=== PATIENT | male | born 1945 | race Caucasian/White ===

== ENCOUNTER → 2017-05-16 14:14 | Outpatient (CLI) | payer MEDICARE, OTHER, SELFPAY ==
--- NOTE | 2017-05-16 14:17 | US_ITS ---
STUDY: SUPERFICIAL ULTRASOUND - LEFT GROIN. REASON FOR EXAM: Male, 71 years old. Palpable abnormality. TECHNIQUE: A superficial ultrasound was performed with real-time and static johnson-scale imaging. COMPARISON: None. FINDINGS: The palpable abnormality corresponds to inhomogeneous area of increased echotexture suggestive of bowel in keeping with hernia. US/Ext Non Vasc Limited/Soft Tiss IMPRESSION: The palpable abnormality most likely corresponds to a hernia containing bowel. Electronically Signed: Gabriel Delcid MD at 9:44 EDT Tel [phone], Service support ,
== END ==
PROVIDERS: Family Provider Nurse Practitioner; PCP Nurse Practitioner; Visit Provider Nurse Practitioner Gerontology
DX: R19.09 Other intra-abdominal and pelvic swelling, mass and lump (principal)
CPT/HCPCS: 76882

== ENCOUNTER 2017-05-26 11:36 | Day surgery (SDC) | payer MEDICARE, OTHER, SELFPAY ==
[2017-05-26] VITALS (7 sets, daily range): BP systolic 129–145; BP diastolic 74–91; PULSE 58–67; RESP 16; TEMP 36.3–36.8; O2SAT 92–100; BMI 31.3
--- NOTE | 2017-05-26 11:50 | EKG12_ITS ---
Test Reason : PREOP Blood Pressure : / mmHG Vent. Rate : 057 BPM Atrial Rate : 057 BPM P-R Int : 186 ms QRS Dur : 092 ms QT Int : 438 ms P-R-T Axes : 040 -14 015 degrees QTc Int : 426 ms Sinus bradycardia Inferior infarct , age undetermined Abnormal ECG Confirmed by ELVA CASTAÑEDA, MAMADOU ([id number]), editor sound MIKE MADDEN ([id number]) on 05/30/2017 3:51:23 PM Referred By: Harman Ta Confirmed By:MAMADOU STEVENSON MD
--- NOTE | 2017-05-26 12:42 | PCM.DC.HER ---
Discharge Diet: Light diet - advance as tolerated Discharge Activity: Return to Normal Activity, May Drive - when you are no longer taking narcotic pain medications., May Shower - with the bandage in place 1-2 days after surgery. Lifting Restrictions: 20 pounds for 8 weeks. Additional Activity Instructions:: Climbing stairs is fine, walking is encouraged. Sitting in bed may be uncomfortable. Sitting up using your lateral muscles (sitting up sideways) is usually more comfortable. Do not drive, work heavy equipment of sign legal documents for 24 hours. If your hernia repair was an ingunial repair, you may have scrotal swelling, an ice pack and/or athletic support can provide more comfort. Pain medications may cause nausea, you should typically eat light foods as you take your pain medications. Pain medications may also cause constipation. If you have difficulty with this, discuss with your doctor. Call your doctor if your incision/area has: Continuous Slow Oozing, Sudden Increased Bleeding, Increased Pain/ Swelling, Increased Redness, Foul Smelling Discharge Call your doctor if you observe: Fever of 101 or Higher Suture Line Care: Avoid Pulling/Pushing, Avoid Pinching/Bending Additional Dressing/Incision Instructions:: Leave the operative bandage on for 2-3 days. When you remove the bandage, leave the steri-strips on place until your follow up appointment or they fall off. Allergies/Adverse Reactions: Allergies ciprofloxacin HCl [From Cipro] Adverse Reaction (Verified 05/22/17 15:09) Nausea/Vom/Diarrhea levofloxacin [From Levaquin] Adverse Reaction (Verified 05/22/17 15:09) Nausea/Vom/Diarrhea Medications to take at Discharge Aspirin [Aspirin, Baby] 81 mg PO DAILY@0800 12/03/13 Glucosamine/MSM/Chondroitin A [Glucosamine Chondroit MSM Tab] 1 ea PO BID 12/03/13 Hydrochlorothiazide [Hctz] 12.5 mg PO DAILY 12/03/13 Vitamin E 400 units PO DAILY 12/03/13 Fexofenedine 180 mg PO DAILY 12/19/13 mecobalamin (vitamin B12) 1,000 mcg disintegrating tablet,sublingual 1,000 mcg SUBLINGUAL QDAY 05/22/17 metoprolol tartrate 50 mg tablet 50 mg PO BID 05/22/17 tamsulosin 0.4 mg capsule 0.4 mg PO QDAY 05/22/17 Oxycodone HCl/Acetaminophen [Percocet 5/325] 1 - 2 tab PO Q4H PRN PRN 4 Days #30 tab 05/26/17 The following prescriptions were given: Oxycodone HCl/Acetaminophen [Percocet 5/325] 1 - 2 tab PO Q4H PRN PRN 4 Days #30 tab PRN Reason: Pain Primary Care Physician: Fiorella Krishna [Primary Care Provider] - Please Follow Up With: Harman Ta MD - [phone] When: Plan to have a follow up appointment in 7 days. Call to schedule.
--- NOTE | 2017-05-26 12:44 | OP.PCM_ITS ---
Problem List (1) Bilateral inguinal hernia without obstruction or gangrene Status: Acute Qualifiers: Recurrence: non-recurrent Qualified Code(s): K40.20 - Bilateral inguinal hernia, without obstruction or gangrene, not specified as recurrent Report of Operation Date of Procedure: 05/26/17 Pre-Operative Diagnosis: k40.20 bilateral inguinal hernias none recurrent Post-Operative Diagnosis: Same Surgery/Procedure Performed:: Laparoscopic bilateral inguinal hernia repair with mesh Type of Anesthesia:: General Anesthesiologist: Sid Olson Description of Procedure: Patient was brought in the operating room. Placed in the supine position. Under excellent general anesthetic. Local was injected supraumbilically and a curvilinear incision was made. Dissection was carried down to the fascia. Fascia was grasped with a Yaa. Varies needle was placed inside the abdomen. The abdomen was insufflated 15 torr. A 10/12 trocar was placed without difficulty. It was flanked by 2 #5 trochars placed under direct visualization. No injury to underlying structures. Patient was placed in the head down and rotated to the left. Patient was noted to have a direct inguinal hernia on the right. I scored the peritoneum and dissected down to Epi's ligament. Bringing back a direct inguinal hernia. I dissected further laterally dissecting the cord and vessel structures. I fashioned a medium 3 DMax mesh into the right side. I tacked the mesh to the pubic tubercle and Epi's ligament with a pro-tacker. I tacked it was sparing tacks superiorly and laterally. I reperitonealized the area with a pro-tacker. The mesh was covered completely. And I had excellent hemostasis. Indirect inguinal hernia on the left. I dissected down to the pubic tubercle and Epi's ligament area dissected further laterally The table was then turned to the right I scored the peritoneum on the left patient was noted to have a large dissecting the cord and vessel structures free. I fashioned a large 3 DMax mesh into the wound. I tacked it to Epi's ligament with a pro-tacker and tacked it superiorly and laterally with a pro- tacker with sparing tacks. The mesh laid completely flat and looked excellent and I had excellent hemostasis. I reperitonealized the area covering the mesh completely. Ilioinguinal nerve blocks were then performed bilaterally. I remove the trochars under direct visualization good hemostasis was noted. Fascia the umbilical port was closed with a [id number] stitch of 0 Vicryl. Skin incisions were closed with subcuticular stitches of 4-0 Monocryl. Steri- Strips were applied. Sterile dressings were applied. The patient tolerated the procedure well. - Admit VTE Documentation VTE Present on Admission: No VTE Mechan Device Prophylaxis: SCD's VTE Pharm Prophylaxis ordered?: No Reason prophylaxis not ordered:: Treatment Not Indicated
[2017-05-26 12:55] LABS: Anion Gap 5 (5-15); BUN 19 mg/dL (7-18); BUN/Creat Ratio 11.9 RATIO (10-20); Calcium,Total 8.6 mg/dL (8.5-10.1); Chloride 105 mmol/L (98-107); EST Glomerular Filtration Rate 46 mL/min (>60); Est Glom Filt Rate - Afr Amer 55 mL/min (>60); Estimated Creatinine Clearance 44.36 ml/min; Glucose 95 mg/dL (74-106); Sodium Level 140 mmol/L (136-145)
[2017-05-26] MEDS: Bupivacaine Mpf 0.5% 30 ML VIAL (13:26)
== END 2017-05-26 16:49 | disposition home or self-care (01) ==
LOC: SDC 11:37 → AC 11:38
PROVIDERS: Family Provider Nurse Practitioner; PCP Nurse Practitioner; Visit Provider Surgery
PROC: (CPT 49650; principal; 2017-05-26 13:45)
DX: K40.20 Bilateral inguinal hernia, without obstruction or gangrene, not specified as recurrent (principal); I12.9 Hypertensive chronic kidney disease with stage 1 through stage 4 chronic kidney disease, or unspecified chronic kidney disease; N18.3 Chronic kidney disease, stage 3 (moderate); E78.1 Pure hyperglyceridemia; D47.2 Monoclonal gammopathy; R16.1 Splenomegaly, not elsewhere classified; N40.0 Benign prostatic hyperplasia without lower urinary tract symptoms; G62.9 Polyneuropathy, unspecified; R00.1 Bradycardia, unspecified; M50.00 Cervical disc disorder with myelopathy, unspecified cervical region; F43.10 Post-traumatic stress disorder, unspecified; Z87.442 Personal history of urinary calculi; Z79.899 Other long term (current) drug therapy; Z79.82 Long term (current) use of aspirin; Z86.718 Personal history of other venous thrombosis and embolism; Z85.51 Personal history of malignant neoplasm of bladder
CPT/HCPCS: 00840; 49650; 80048; 93005; J7120; C1781; J2405

== ENCOUNTER → 2017-06-05 10:20 | Outpatient (CLI) | payer MEDICARE, OTHER, SELFPAY ==
[2017-06-05 10:32] LABS: Bacteria 0 SEEN /hpf (None Seen); Red Blood Cells-Urine 0 SEEN /hpf (0-5); Squamous Epithelial Cells - UA 0 SEEN /hpf (0-5)
[2017-06-05 11:40] LABS: Color, Urine Yellow (Yellow); Glucose, Dipstick Normal (Normal); Ketone-Dipstick Negative (Negative); Leukocyte Esterase-Dipstick 25 /ul (Negative); Nitrite-Dipstick Negative (Negative); Occult Blood-Urine Negative /ul (Negative); Protein-Dipstick Negative (Negative); Urine Bilirubin Dipstick Negative (Negative); Urine Clarity Clear (Clear); Urine Urobilinogen Normal (Normal)
[2017-06-05 11:51] LABS: Hyaline Cast 0-5 SEEN /lpf (0-5); Mucous, Urine 2+ /hpf (<or=2+); White Blood Cells 0-5 SEEN /hpf (0-5)
== END ==
PROVIDERS: Family Provider Nurse Practitioner; PCP Nurse Practitioner; Visit Provider Physician Assistant
DX: R30.0 Dysuria (principal)
CPT/HCPCS: 81001

== ENCOUNTER → 2017-10-31 16:33 | Outpatient (CLI) | payer MEDICARE, OTHER, SELFPAY ==
--- NOTE | 2017-10-31 16:37 | RAD_ITS ---
STUDY: X-RAY LEFT FOOT, FIRST TOE REASON FOR EXAM: Male, 71 years old. Left great toe pain TECHNIQUE: 3 view(s) of the toe were obtained. COMPARISON: None. FINDINGS: Normal visualized metatarsus. Normal metatarsophalangeal (M.T.P) joint. Normal interphalangeal joint. Normal phalanges and interphalangeal joint. There is no radiopaque foreign body. RAD/Toe(s) Min 2 Views IMPRESSION: Normal x-ray of the toe. Electronically Signed: Jayna Eng MD at 7:10 EDT , Service support ,
== END ==
PROVIDERS: Family Provider Nurse Practitioner; PCP Nurse Practitioner; Referring Provider Nurse Practitioner; Visit Provider Nurse Practitioner
DX: M79.675 Pain in left toe(s) (principal)
CPT/HCPCS: 73660

== ENCOUNTER → 2018-09-11 10:48 | Outpatient (CLI) | payer MEDICARE, OTHER, SELFPAY ==
--- NOTE | 2018-09-11 10:56 | RAD_ITS ---
STUDY: X-RAY - RIGHT FOOT CLINICAL: Male, 72 years old. 3 day history of right foot pain. TECHNIQUE: 3 view(s) of the foot. COMPARISON: None. FINDINGS: Normal talus, calcaneus, and tarsal bones. Normal visualized subtalar, talonavicular, calcaneocuboid, tarsal and tarsometatarsal articulations. Normal metatarsi. There is degenerative arthrosis of the metatarsophalangeal joint of the hallux . Normal tibial and fibular sesamoid bones. Normal interphalangeal joint of the great toe. Normal phalanges of the great toe. Normal second through fifth metatarsophalangeal joints. Normal interphalangeal joints and phalanges of the lesser toes. Soft tissue swelling. RAD/Foot min 3 Views IMPRESSION: Soft tissue swelling. Degenerative changes at the first metatarsophalangeal joint. Electronically Signed: Gabriel Delcid, at 12:13 EDT , Service support ,
== END ==
PROVIDERS: Family Provider Nurse Practitioner; PCP Nurse Practitioner; Referring Provider Nurse Practitioner; Visit Provider Nurse Practitioner
DX: M19.071 Primary osteoarthritis, right ankle and foot (principal); M79.89 Other specified soft tissue disorders
CPT/HCPCS: 73630

== ENCOUNTER → 2020-04-23 12:38 | Outpatient (CLI) | payer MEDICARE, OTHER, SELFPAY ==
[2020-04-21 09:08] VITALS: BMI 30.8
== END ==
PROVIDERS: PCP Nurse Practitioner; Referring Provider Surgery; Visit Provider Surgery
DX: M79.89 Other specified soft tissue disorders (principal); Z86.718 Personal history of other venous thrombosis and embolism
CPT/HCPCS: 93970

== ENCOUNTER → 2020-04-24 11:06 | Outpatient (CLI) | payer MEDICARE, OTHER, SELFPAY ==
[2020-04-21 09:08] VITALS: BMI 30.8
[2020-04-24 11:42] LABS: D-Dimer Quantitative (DVT/PE) 1.72 FEU/ug/m (0.27-0.49)
== END ==
PROVIDERS: PCP Nurse Practitioner; Referring Provider Internal Medicine Hematology & Oncology; Visit Provider Internal Medicine Hematology & Oncology
DX: D47.2 Monoclonal gammopathy (principal); I82.431 Acute embolism and thrombosis of right popliteal vein
CPT/HCPCS: 85379

== ENCOUNTER 2020-04-28 09:00 | Outpatient (RCR) | payer MEDICARE, OTHER, SELFPAY ==
[2020-04-21 09:08] VITALS: BP 151/93; PULSE 69; TEMP 37; BMI 30.8
--- NOTE | 2020-04-21 13:31 | HP.PCM_ITS ---
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 Code(s): I87.099 - Postthrombotic syndrome with other complications of unspecified lower extremity (4) History of bilateral inguinal hernia repair Status: Inactive Code(s): Z98.890 - Other specified postprocedural states; Z87.19 - Personal history of other diseases of the digestive system Comment: 05/26/2017 (5) S/P trigger finger release Status: Inactive Code(s): Z98.890 - Other specified postprocedural states Comment: Left hand (6) Hx of renal calculi Status: Inactive Code(s): Z87.442 - Personal history of urinary calculi (7) History of malignant neoplasm of bladder Status: Inactive Code(s): Z85.51 - Personal history of malignant neoplasm of bladder Comment: removal 12/2014 (8) Status post evacuation of subdural hematoma Status: Inactive Code(s): Z98.890 - Other specified postprocedural states; Z86.79 - Personal history of other diseases of the circulatory system (9) S/P tonsillectomy Status: Inactive Code(s): Z90.89 - Acquired absence of other organs (10) Hypertension Status: Chronic Code(s): I10 - Essential (primary) hypertension (11) Mild degeneration of cervical intervertebral disc Status: Chronic Code(s): M50.30 - Other cervical disc degeneration, unspecified cervical region (12) Personal history of subdural hematoma Status: Inactive Code(s): Z86.79 - Personal history of other diseases of the circulatory system (13) BPH (benign prostatic hyperplasia) Status: Chronic Code(s): N40.0 - Benign prostatic hyperplasia without lower urinary tract symptoms (14) Neuropathy Status: Chronic Code(s): G62.9 - Polyneuropathy, unspecified (15) Hypertriglyceridemia Status: Chronic Code(s): E78.1 - Pure hyperglyceridemia (16) CKD (chronic kidney disease) stage 3, GFR 30-59 ml/min Status: Chronic Code(s): N18.3 - Chronic kidney disease, stage 3 (moderate) (17) Elevated PSA Status: Chronic Code(s): R97.20 - Elevated prostate specific antigen [PSA] (18) Cervical radiculopathy Status: Chronic Code(s): M54.12 - Radiculopathy, cervical region (19) Personal history of DVT (deep vein thrombosis) Status: Chronic Code(s): Z86.718 - Personal history of other venous thrombosis and embolism History of Present Illness Date of Service: 04/21/20 Chief Complaint: Chronic swelling and edema of the right lower extremity History of Wound: This is a 74-year-old male who presented with chronic swelling and edema in his right lower extremity. He denies pain in the right lower extremity. Swelling and edema is worse at baseline. Patient sleeps in a recumbent position at night. He is active, and plays golf regularly. Historically, the patient has had 2 episodes of deep vein thrombosis in the right lower extremity. The first episode occurred in 1998, and the second in 2010. Both episodes occurred after driving on vacation to [place]. Following the first episode, the patient was placed on warfarin for approximately 6 months. Following the second episode, the patient was placed on warfarin, and took the medications for approximately 2 years which resulted in a subdural hematoma. The patient's subdural hematoma required surgical evacuation. The patient has been off of systemic anticoagulation therapy since that time. Local interactive developer, Dr. Tomy Hunter, has been involved in the patient's management. The patient currently takes an aspirin tablet daily. According to the patient, Dr. Hunter performed a thrombophilia evaluation in the past, though the results are not known. The patient has in his possession compression stockings, that were obtained in a department store, and likely of sufficient clinical compression. Past Medical History Past Medical History: Chronic Problems (Last Reviewed 06/05/17 @ 09:40 by Pinky Vela) Swelling of right lower extremity (Chronic) Edema of right lower leg (Chronic) Postphlebetic syndrome with other complication (Chronic) Hypertension (Chronic) Mild degeneration of cervical intervertebral disc (Chronic) BPH (benign prostatic hyperplasia) (Chronic) Neuropathy (Chronic) Hypertriglyceridemia (Chronic) CKD (chronic kidney disease) stage 3, GFR 30-59 ml/min (Chronic) Elevated PSA (Chronic) Cervical radiculopathy (Chronic) Personal history of DVT (deep vein thrombosis) (Chronic) Past Medical History: Patient's history is negative for myocardial infarction, congestive heart failure, diabetes mellitus, cerebrovascular accident, pulmonary disease, thyroid disease, peripheral arterial occlusive disease, and gastroesophageal reflux disease. Patient suffers from hypertension. He has a history of bladder cancer. He suffers from renal insufficiency, stage III. He also has a history of hyperlipidemia gout, obesity, cervical radiculopathy, peripheral neuropathy, and benign prostatic hypertrophy. Surgical History: - - The patient underwent evacuation of the subdural hematoma in 2012. He has had bilateral inguinal hernia repair. He had Dupuytren's contracture surgery on his left hand. He has had renal stones extracted. Allergies/Adverse Reactions: Allergies ciprofloxacin HCl [From Cipro] Adverse Reaction (Verified 06/05/17 09:40) Nausea/Vom/Diarrhea levofloxacin [From Levaquin] Adverse Reaction (Verified 06/05/17 09:40) Nausea/Vom/Diarrhea Home Medications: Ambulatory Orders Medication Instructions Recorded Aspirin [Aspirin, Baby] 81 mg PO DAILY@0800 12/03/13 Glucosamine/MSM/Chondroitin A 1 ea PO BID 12/03/13 [Glucosamine Chondroit MSM Tab] Hydrochlorothiazide [Hctz] 12.5 mg PO DAILY 12/03/13 Vitamin E 400 units PO DAILY 12/03/13 Fexofenedine 180 mg PO DAILY 12/19/13 mecobalamin (vitamin B12) 1,000 1,000 mcg SUBLINGUAL QDAY 05/22/17 mcg disintegrating tablet,sublingual metoprolol tartrate 50 mg tablet 50 mg PO BID 05/22/17 tamsulosin 0.4 mg capsule 0.4 mg PO QDAY 05/22/17 - Family History Paternal Family History: Family History (Last Reviewed 06/05/17 @ 09:40 by Pinky Vela) Father Hypertension Hx of blood clots Mother Hypertension Hx of blood clots Social History: 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 Lives: Spouse/ Significant Other Smoking Status: Never smoker Tobacco Use: Non-smoker Alcohol: None Drugs: None Review of Systems Constitutional: Denies: Chills, Fever, Weight Change Eyes: Denies: Pain, Vision Change HEENT: Denies: Difficulty Hearing, Difficulty Swallowing, Sinus Congestion Cardiovascular: Denies: Chest Pain, Palpitations Respiratory: Denies: Cough, Shortness of Breath Gastrointestinal: Denies: Diarrhea, Nausea, Vomiting Genitourinary: Denies: Dysuria, Hematuria Endocrine: Denies: Heat/ Cold Intolerance, Polydipsia, Polyuria Hematologic/ Lymphatic: Denies: Easy Bruising, Easy Bleeding - Physical Exam Vital Signs Temp Pulse BP 98.6 F 69 151/93 H 04/21/20 09:08 04/21/20 09:08 04/21/20 09:08 General: Alert, Oriented x3, Cooperative, No apparent distress, Well developed, Well nourished HEENT: Atraumatic, PERRLA, EOMI, Normocephalic Oral: Moist Mucosa Neck: No JVD Lungs: Normal air movement Abdomen: Non-Distended Extremities: No clubbing, No cyanosis, No Calf Tenderness, - - Mild swelling and edema are noted in the patient's right lower extremity. Coronal sleep ectatic is noted near the right medial malleolus. There are no open wounds or ulcerations. The peripheral extremities are warm and well perfused. Wound Measurements and Assessment WC - Nurse 1 - General Ulcer Measurement Start: 04/21/20 09:08 Freq: Status: Active Protocol: Activity Type Activity Date Activity User E-Sign Co-Sign Detail Recorded Client Recorded Date Recorded By Document 04/21/20 09:08 KR [id number] 04/21/20 09:28 KR 04/21/20 09:08 Wound Center Nurse 1 [Edema Assessment] -Right Calf (cm) 42.5 -Right Ankle (cm) 27 -Left Calf (cm) 42.5 -Left Ankle (cm) 24.6 WC - Nurse 3 - General Ulcer D/C NN Start: 04/21/20 09:08 Freq: Status: Active Protocol: Activity Type Activity Date Activity User E-Sign Co-Sign Detail Recorded Client Recorded Date Recorded By Document 04/21/20 10:03 KR [id number] 04/21/20 10:03 KR 04/21/20 10:03 Wound Care Nurse 3 [Compression Applied] Left -Compression Wrap Surepress ($) Musculoskeletal: No Muscle Wasting Neurological: Cranial nerves II-XII grossly intact, Neuro grossly intact Psych/Mental Status: Normal Affect, Appropriate, Alert and oriented to time, place, person, mood and affect Debridement Note Post-Debridement Measurements/Treatment WC - Nurse 3 - General Ulcer D/C NN Start: 04/21/20 09:08 Freq: Status: Active Protocol: Activity Type Activity Date Activity User E-Sign Co-Sign Detail Recorded Client Recorded Date Recorded By Document 04/21/20 10:03 FAUSTINA [id number] 04/21/20 10:03 FAUSTINA 04/21/20 10:03 Wound Care Nurse 3 Left -Compression Wrap Surepress ($) No debridement was completed today - There are no open wounds or ulcerations. Assessment/Plan Active Problems (Last Reviewed 06/05/17 @ 09:40 by Pinky Vela) Swelling of right lower extremity (Chronic) Edema of right lower leg (Chronic) Postphlebetic syndrome with other complication (Chronic) Hypertension (Chronic) Mild degeneration of cervical intervertebral disc (Chronic) BPH (benign prostatic hyperplasia) (Chronic) Neuropathy (Chronic) Hypertriglyceridemia (Chronic) CKD (chronic kidney disease) stage 3, GFR 30-59 ml/min (Chronic) Elevated PSA (Chronic) Cervical radiculopathy (Chronic) Personal history of DVT (deep vein thrombosis) (Chronic) Assessment: This is a 74-year-old generally active male who presents with swelling and edema in his right lower extremity. He has had 2 prior episodes of deep vein thrombosis in his right lower extremity. Both episodes were treated with systemic anticoagulation therapy. Two years following his second episode of deep vein thrombosis, while on warfarin, the patient suffered a subdural hematoma, which required surgical evacuation. Since that time, he has not been systemically anticoagulated. He is active. He sleeps in a recumbent position at night. It is likely that his right lower extremity swelling and edema are the result of postphlebitic effects. Plan: The patient, and his at the bedside, have been instructed in the appropriate conservative treatment measures relative to his right lower extremity swelling and edema. The patient has been advised to continue sleeping in a recumbent position. He has been advised to elevate his lower extremities, even during daytime hours. Elevation is to be to heart level, or higher. This is to be implemented as much as possible. Prolonged idle sitting has been discouraged. Activity has been encouraged. Weight optimization has been recommended. We are to obtain a venous duplex examination of the lower extremities, which is scheduled 2 days hence. We are to implement compression to the right lower extremity by means of SurePress wraps, which will be applied by the patient on a daily basis. Both the patient and his have been instructed in the appropriate means of application. Patient is to return in 1 week for reassessment. Influenza vaccine was not administered today. The patient is not a smoker. Patient weighs 215 pounds. He stands 5 feet 10 inches tall. His BMI is 30.8. Total time 29 minutes.
[2020-04-28 08:45] VITALS: BP 147/77; PULSE 71; TEMP 35.9; BMI 30.8
--- NOTE | 2020-04-28 09:31 | HP.PCM_ITS ---
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 Code(s): I87.099 - Postthrombotic syndrome with other complications of unspecified lower extremity (4) History of bilateral inguinal hernia repair Status: Inactive Code(s): Z98.890 - Other specified postprocedural states; Z87.19 - Personal history of other diseases of the digestive system Comment: 05/26/2017 (5) S/P trigger finger release Status: Inactive Code(s): Z98.890 - Other specified postprocedural states Comment: Left hand (6) Hx of renal calculi Status: Inactive Code(s): Z87.442 - Personal history of urinary calculi (7) History of malignant neoplasm of bladder Status: Inactive Code(s): Z85.51 - Personal history of malignant neoplasm of bladder Comment: removal 12/2014 (8) Status post evacuation of subdural hematoma Status: Inactive Code(s): Z98.890 - Other specified postprocedural states; Z86.79 - Personal history of other diseases of the circulatory system (9) S/P tonsillectomy Status: Inactive Code(s): Z90.89 - Acquired absence of other organs (10) Hypertension Status: Chronic Code(s): I10 - Essential (primary) hypertension (11) Mild degeneration of cervical intervertebral disc Status: Chronic Code(s): M50.30 - Other cervical disc degeneration, unspecified cervical region (12) Personal history of subdural hematoma Status: Inactive Code(s): Z86.79 - Personal history of other diseases of the circulatory system (13) BPH (benign prostatic hyperplasia) Status: Chronic Code(s): N40.0 - Benign prostatic hyperplasia without lower urinary tract symptoms (14) Neuropathy Status: Chronic Code(s): G62.9 - Polyneuropathy, unspecified (15) Hypertriglyceridemia Status: Chronic Code(s): E78.1 - Pure hyperglyceridemia (16) CKD (chronic kidney disease) stage 3, GFR 30-59 ml/min Status: Chronic Code(s): N18.3 - Chronic kidney disease, stage 3 (moderate) (17) Elevated PSA Status: Chronic Code(s): R97.20 - Elevated prostate specific antigen [PSA] (18) Cervical radiculopathy Status: Chronic Code(s): M54.12 - Radiculopathy, cervical region (19) Personal history of DVT (deep vein thrombosis) Status: Chronic Code(s): Z86.718 - Personal history of other venous thrombosis and embolism History of Present Illness Date of Service: 04/28/20 Chief Complaint: Chronic swelling and edema of the right lower extremity History of Wound: This is a 74-year-old male who presented with chronic swelling and edema in his right lower extremity. He denies pain in the right lower extremity. Swelling and edema is worse at baseline. Patient sleeps in a recumbent position at night. He is active, and plays golf regularly. Historically, the patient has had 2 episodes of deep vein thrombosis in the right lower extremity. The first episode occurred in 1998, and the second in 2010. Both episodes occurred after driving on vacation to [place]. Following the first episode, the patient was placed on warfarin for approximately 6 months. Following the second episode, the patient was placed on warfarin, and took the medications for approximately 2 years which resulted in a subdural hematoma. The patient's subdural hematoma required surgical evacuation. The patient has been off of systemic anticoagulation therapy since that time. Local nuclear waste process operator, Dr. Tomy Hunter, has been involved in the patient's management. The patient currently takes an aspirin tablet daily. According to the patient, Dr. Hunter performed a thrombophilia evaluation in the past, though the results are not known. The patient has in his possession compression stockings, that were obtained in a department store, and likely of sufficient clinical compression. Past Medical History Past Medical History: Chronic Problems (Last Reviewed 06/05/17 @ 09:40 by Pinky Vela) Swelling of right lower extremity (Chronic) Edema of right lower leg (Chronic) Postphlebetic syndrome with other complication (Chronic) Hypertension (Chronic) Mild degeneration of cervical intervertebral disc (Chronic) BPH (benign prostatic hyperplasia) (Chronic) Neuropathy (Chronic) Hypertriglyceridemia (Chronic) CKD (chronic kidney disease) stage 3, GFR 30-59 ml/min (Chronic) Elevated PSA (Chronic) Cervical radiculopathy (Chronic) Personal history of DVT (deep vein thrombosis) (Chronic) Surgical History: - - The patient underwent evacuation of the subdural hematoma in 2012. He has had bilateral inguinal hernia repair. He had Dupuytren's contracture surgery on his left hand. He has had renal stones extracted. Allergies/Adverse Reactions: Allergies ciprofloxacin HCl [From Cipro] Adverse Reaction (Verified 06/05/17 09:40) Nausea/Vom/Diarrhea levofloxacin [From Levaquin] Adverse Reaction (Verified 06/05/17 09:40) Nausea/Vom/Diarrhea Home Medications: Ambulatory Orders Medication Instructions Recorded Aspirin [Aspirin, Baby] 81 mg PO DAILY@0800 12/03/13 Glucosamine/MSM/Chondroitin A 1 ea PO BID 12/03/13 [Glucosamine Chondroit MSM Tab] Hydrochlorothiazide [Hctz] 12.5 mg PO DAILY 12/03/13 Vitamin E 400 units PO DAILY 12/03/13 Fexofenedine 180 mg PO DAILY 12/19/13 mecobalamin (vitamin B12) 1,000 1,000 mcg SUBLINGUAL QDAY 05/22/17 mcg disintegrating tablet,sublingual metoprolol tartrate 50 mg tablet 50 mg PO BID 05/22/17 tamsulosin 0.4 mg capsule 0.4 mg PO QDAY 05/22/17 - Family History Paternal Family History: Family History (Last Reviewed 06/05/17 @ 09:40 by Pinky Vela) Father Hypertension Hx of blood clots Mother Hypertension Hx of blood clots Lives: Spouse/ Significant Other Smoking Status: Never smoker Tobacco Use: Non-smoker Alcohol: None Drugs: None Review of Systems Constitutional: Denies: Chills, Fever, Weight Change Eyes: Denies: Pain, Vision Change HEENT: Denies: Difficulty Hearing, Difficulty Swallowing, Sinus Congestion Cardiovascular: Denies: Chest Pain, Palpitations Respiratory: Denies: Cough, Shortness of Breath Gastrointestinal: Denies: Diarrhea, Nausea, Vomiting Genitourinary: Denies: Dysuria, Hematuria Endocrine: Denies: Heat/ Cold Intolerance, Polydipsia, Polyuria Hematologic/ Lymphatic: Denies: Easy Bruising, Easy Bleeding - Physical Exam Vital Signs Temp Pulse BP 96.7 F L 71 147/77 H 04/28/20 08:45 04/28/20 08:45 04/28/20 08:45 General: Alert, Oriented x3, Cooperative, No apparent distress, Well developed, Well nourished HEENT: Atraumatic, PERRLA, EOMI, Normocephalic Oral: Moist Mucosa Neck: No JVD Lungs: Normal air movement Abdomen: Non-Distended Extremities: No clubbing, No cyanosis, No edema, No Calf Tenderness, - - There is no noted swelling or edema in the patient's right lower extremity. It is significantly improved. There are no skin changes, open wounds, or other visible abnormalities of the right lower extremity. Skin: No rashes Wound Measurements and Assessment WC - Nurse 1 - General Ulcer Measurement Start: 04/21/20 09:08 Freq: Status: Active Protocol: Activity Type Activity Date Activity User E-Sign Co-Sign Detail Recorded Client Recorded Date Recorded By Document 04/28/20 08:45 KR [id number] 04/28/20 08:50 KR 04/28/20 08:45 Wound Center Nurse 1 [Edema Assessment] -Right Calf (cm) 42 -Right Ankle (cm) 27 -Left Calf (cm) 41 -Left Ankle (cm) 25 WC - Nurse 3 - General Ulcer D/C NN Start: 04/21/20 09:08 Freq: Status: Active Protocol: Activity Type Activity Date Activity User E-Sign Co-Sign Detail Recorded Client Recorded Date Recorded By Document 04/28/20 09:28 KR [id number] 04/28/20 09:28 KR 04/28/20 09:28 Wound Care Nurse 3 [Compression Applied] Left -Compression Wrap Surepress ($) Pain Scale: 0-10 Numeric [Pain] -Is Patient Pain Free? Yes - Visit Discharge [Visit Discharge Information] -Discharge Condition Stable -Ambulatory Status Ambulatory -Transportation Private Auto -Accompanied by Musculoskeletal: No Muscle Wasting Neurological: Cranial nerves II-XII grossly intact, Neuro grossly intact Psych/Mental Status: Normal Affect, Appropriate, Alert and oriented to time, place, person, mood and affect Debridement Note Post-Debridement Measurements/Treatment - Nurse 3 - General Ulcer D/C NN Start: 04/21/20 09:08 Freq: Status: Active Protocol: Activity Type Activity Date Activity User E-Sign Co-Sign Detail Recorded Client Recorded Date Recorded By Document 04/21/20 10:03 KR [id number] 04/21/20 10:03 KR Document 04/28/20 09:28 KR [id number] 04/28/20 09:28 KR 04/21/20 04/28/20 10:03 09:28 Wound Care Nurse 3 Left -Compression Wrap Surepress ($) Surepress ($) Pain Scale: 0-10 Numeric Is Patient Pain Free? Yes WC - Visit Discharge Discharge Condition Stable Ambulatory Status Ambulatory Transportation Private Auto Accompanied by No debridement was completed today - There are no open wounds or ulcerations Assessment/Plan Active Problems (Last Reviewed 06/05/17 @ 09:40 by Pinky Vela) Swelling of right lower extremity (Chronic) Edema of right lower leg (Chronic) Postphlebetic syndrome with other complication (Chronic) Hypertension (Chronic) Mild degeneration of cervical intervertebral disc (Chronic) BPH (benign prostatic hyperplasia) (Chronic) Neuropathy (Chronic) Hypertriglyceridemia (Chronic) CKD (chronic kidney disease) stage 3, GFR 30-59 ml/min (Chronic) Elevated PSA (Chronic) Cervical radiculopathy (Chronic) Personal history of DVT (deep vein thrombosis) (Chronic) Assessment: This is a 74-year-old generally active male who presented with swelling and edema in his right lower extremity. He has had 2 prior episodes of deep vein thrombosis in his right lower extremity. Both episodes were treated with systemic anticoagulation therapy. Two years following his second episode of deep vein thrombosis, while on warfarin, the patient suffered a subdural hematoma, which required surgical evacuation. Since that time, he has not been systemically anticoagulated. He is active. He sleeps in a recumbent position at night. It is likely that his right lower extremity swelling and edema are the result of postphlebitic effects. Following the patient's initial visit 1 week ago, the patient underwent a venous duplex examination on April 23, 2020. He was found to have acute deep vein thrombosis in a short segment of the right popliteal vein. Patient was immediately informed of the finding. The patient's established nuclear waste process operator, Dr. Tomy Hunter, was contacted, and the management options relative to the patient's right lower extremity deep vein thrombosis were discussed in detail. The patient's remote past history of subdural hematoma while treated with systemic anticoagulation in the past was acknowledged. Additionally, the patient's two prior episodes of right lower extremity deep vein thrombosis were also considered. Decision was made to proceed with systemic anticoagulation therapy. It was felt that the use of Lovenox would be most appropriate, due to its short half-life. The patient was seen by Dr. Hunter without significant delay, and was started on Lovenox 90 mg subcutaneously every [address] Hunter's note has been reviewed. It is anticipated that systemic anticoagulation will likely continue for 3 months, with dose reduction considered in several weeks. Plan: The patient, and his at the bedside, have again been instructed in the appropriate conservative treatment measures relative to his right lower extremity swelling and edema. The patient has been advised to continue sleeping in a recumbent position. He has been advised to elevate his lower extremities, even during daytime hours. Elevation is to be to heart level, or higher. This is to be implemented as much as possible. Prolonged idle sitting has been discouraged. Activity has been encouraged. Weight optimization has been recommended. The patient is to continue wrapping his right lower extremity with SurePress on a daily basis. A prescription for graduated compression stockings of 20 to 30 mmHg compression has been provided by Dr. Hunter, and the stockings h ave been ordered from a local medical supply store. It is anticipated that the patient will obtain the stockings within the next several days, and begin wearing them daily. As documented above, the patient is now receiving systemic anticoagulation therapy, as prescribed by Dr. Hunter, nuclear waste process operator. Patient is scheduled to follow-up with Dr. Hunter in the next several weeks. The swelling in the patient's right lower extremity appears to have subsided, and there is currently no significant swelling or edema noted. Given the patient's history and his recent right lower extremity deep vein thrombosis, the patient is likely to continue having symptoms and manifestations of postphlebitic syndrome. He has been advised to continue with conservative treatment measures long-term, which include leg elevation, avoidance of idle standing and sitting, active lifestyle, weight management, and the use of graduated compression stockings. He is to be discharged from our facility, with instructions to follow-up with Dr. Hunter regarding systemic anticoagulation therapy and management of his current episode of right lower extremity deep vein thrombosis. Influenza vaccine was not administered today. The patient is not a smoker. Patient weighs 215 pounds. He stands 5 feet 10 inches tall. His BMI is 30.8. Total time: 27 minutes.
== END 2020-04-28 09:47 | disposition home or self-care (01) ==
LOC: WC 09:00
PROVIDERS: PCP Nurse Practitioner; Visit Provider Surgery
DX: R60.0 Localized edema (principal); M79.89 Other specified soft tissue disorders; I87.0 Postthrombotic syndrome; M50.10 Cervical disc disorder with radiculopathy, unspecified cervical region; N40.0 Benign prostatic hyperplasia without lower urinary tract symptoms; G62.9 Polyneuropathy, unspecified; N18.30 Chronic kidney disease, stage 3 unspecified; I12.9 Hypertensive chronic kidney disease with stage 1 through stage 4 chronic kidney disease, or unspecified chronic kidney disease; Z85.51 Personal history of malignant neoplasm of bladder; Z86.718 Personal history of other venous thrombosis and embolism; Z79.01 Long term (current) use of anticoagulants; Z79.82 Long term (current) use of aspirin; Z79.899 Other long term (current) drug therapy; Z79.84 Long term (current) use of oral hypoglycemic drugs
CPT/HCPCS: 99213; G0463

== ENCOUNTER → 2020-07-21 09:38 | Outpatient (CLI) | payer MEDICARE, OTHER, SELFPAY ==
--- NOTE | 2020-07-21 09:44 | VDLE_ITS ---
Reason For Study: chronic DVT RIGHT GSV is normal. CFV is compressible, spontaneous, phasic, competent and demonstrates normal augmentation. FV is compressible, spontaneous, phasic, competent and demonstrates normal augmentation. PTV is compressible. RT PerV is compressible. Gastroc V is partially compressible with bright intraluminal echoes noted. T/P Trunk is partially compressible with bright intraluminal echoes notes. POP V is partially compressible with decreased flow. Improvement noted from previous study done 04/23/2020. Procedure This is a venous duplex using B-mode, color flow and spectral Doppler. Exam performed in department. The exam was abbreviated due to the COVID 19 protocol. The exam was diagnostic. VL/Venous Duplex US, Unilateral Interpretation Summary Chronic venous changes with acute elements are noted in the right popliteal vei n, demonstrating improvement from a prior study on 04/23/2020. Chronic venous changes are noted i n the right tibio- peroneal trunk and gastrocnemius vein, which are partially compressible and dem onstrate bright intraluminal echogenicity. The remainder of the right lower extremity deep veno us system is patent and compressible. The right common femoral vein and femoral vein are competent. The right great saphenous vein appears patent and compressible segmentally. Ordering Physician: Tomy Hunter Performed By: Sajan Perez RVScott
== END ==
PROVIDERS: PCP Nurse Practitioner; Referring Provider Internal Medicine Hematology & Oncology; Visit Provider Internal Medicine Hematology & Oncology
DX: I82.531 Chronic embolism and thrombosis of right popliteal vein (principal)
CPT/HCPCS: 93971

== ENCOUNTER 2022-10-22 18:09 | Emergency (ER) | payer MEDICARE, OTHER, SELFPAY ==
[2022-10-22 18:11] VITALS: BP 171/109; PULSE 68; RESP 18; TEMP 36.1; O2SAT 100
--- NOTE | 2022-10-22 18:40 | EDS_ITS ---
HPI <ANIRUDH Workman - Last Filed: 10/22/22 20:57> History of Present Illness Chief Complaint: Head Injury Narrative Narrative: Patient presenting today due to a syncopal episode that occurred this evening. He reports that he was outside cleaning his golf clubs and got stung by bee to his right dorsal forearm. He went inside to grab some baking soda to put on the staying and went back outside to continue cleaning. He began to feel lightheaded so he went back inside and had a syncopal episode, he did hit his head on the fireplace in the process of falling and has a laceration to his forehead. His was able to help him get back up and he proceeded to have a second syncopal episode. There was no seizure-like activity. Patient reports that this morning he felt off but is unable to explain what that means. He denies any fever, chills, recent illness, abdominal pain, nausea, vomiting, chest pain, and shortness of breath. Tetanus is not up-to-date. He is not on any blood thinners. [facility] <ANIRUDH Workman - Last Filed: 10/22/22 20:57> [facility] Medical History (Updated 10/22/22 @ 20:54 by ANIRUDH Workman) Allergic rhinitis BPH (benign prostatic hyperplasia) Cervical radiculopathy CKD (chronic kidney disease) stage 3, GFR 30-59 ml/min Elevated PSA Hypertension Hypertriglyceridemia Left inguinal hernia Malignant neoplasm of urinary bladder MGUS (monoclonal gammopathy of unknown significance) Mild degeneration of cervical intervertebral disc Neuropathy Personal history of DVT (deep vein thrombosis) PTSD (post-traumatic stress disorder) Renal insufficiency Splenomegaly Home Medications aspirin 81 mg chewable tablet 81 mg PO DAILY@0800 12/03/13 [History Last Taken 05/21/17] glucosamine HCl 500 mg-msm 83 mg-chondroitin 400 mg tablet 1 ea PO BID 12/03/13 [History Last Taken Unknown] hydrochlorothiazide 25 mg tablet 12.5 mg PO DAILY 12/03/13 [History Last Taken 12/02/13] vitamin E (dl, acetate) 180 mg (400 unit) capsule 400 units PO DAILY 12/03/13 [History Last Taken Unknown] Fexofenedine 180 mg PO DAILY 12/19/13 [History Last Taken Unknown] mecobalamin (vitamin B12) 1,000 mcg disintegrating tablet,sublingual 1,000 mcg sublingual QDAY 05/22/17 [History Last Taken Unknown] metoprolol tartrate 50 mg tablet (Lopressor) 50 mg PO BID 05/22/17 [History Last Taken 05/26/17 08:00] tamsulosin 0.4 mg capsule 0.4 mg PO QDAY 05/22/17 [History Last Taken Unknown] Allergy/AdvReac Type Severity Reaction Status Date / Time ciprofloxacin HCl AdvReac Nausea/Vom/ Verified 10/22/22 18:12 [From Cipro] Diarrhea levofloxacin [From Levaquin] AdvReac Nausea/Vom/ Verified 10/22/22 18:12 Diarrhea Family History Father Hypertension Hx of blood clots Mother Hypertension Hx of blood clots Surgical History History of bilateral inguinal hernia repair History of malignant neoplasm of bladder Hx of renal calculi Personal history of subdural hematoma S/P tonsillectomy S/P trigger finger release Status post evacuation of subdural hematoma Social History Smoking Status: Never smoker second hand exposure: No alcohol intake: never substance use type: does not use caffeine: Yes what type of physical activity do you participate in: walking and additional details: Golfing frequency: 5-6 times per week seatbelt use: always ROS <ANIRUDH Workman - Last Filed: 10/22/22 20:57> ROS ED Constitutional Constitutional ED: Denies chills or fever(s) Eyes Eyes: Denies change in vision Cardiovascular Cardiovascular: Denies chest pain Respiratory/Chest Respiratory/Chest: Denies cough or dyspnea Gastrointestinal Gastrointestinal: Denies abdominal pain, nausea or vomiting Genitourinary Genitourinary ED: Denies dysuria, hematuria or urinary urgency Musculoskeletal Musculoskeletal: Reports neck pain; Denies arthralgias or myalgias Integumentary Reports laceration Neurologic Neurologic: Reports headache(s); Denies confusion or dizziness EXAM <ANIRUDH Workman - Last Filed: 10/22/22 20:57> Physical Exam Const Vital Signs: 10/22/22 18:11 09/16/23 19:00 10/22/22 19:03 Temperature 96.9 F L Temperature Source Temporal Pulse Rate 68 66 Pulse Rate [Lying] Pulse Rate [Sitting (for 1 minute prior to obtaining)] Pulse Rate [Standing (for 1 minute prior to obtaining)] Respiratory Rate 18 16 Respiratory Effort Normal Non-Labored Blood Pressure 171/109 H 155/79 H Blood Pressure [Lying] Blood Pressure [Sitting (for 1 minute prior to obtaining)] Blood Pressure [Standing (for 1 minute prior to obtaining)] Blood Pressure Mean 129 104 Blood Pressure Mean [Lying] Blood Pressure Mean [Sitting (for 1 minute prior to obtaining)] Blood Pressure Mean [Standing (for 1 minute prior to obtaining)] Pulse Ox 100 100 Oxygen Delivery Method Room Air Room Air 10/22/22 21:15 10/22/22 22:06 Temperature Temperature Source Pulse Rate 63 Pulse Rate [Lying] 65 Pulse Rate [Sitting (for 1 minute prior to obtaining)] 69 Pulse Rate [Standing (for 1 minute prior to obtaining)] 71 Respiratory Rate Respiratory Effort Blood Pressure Blood Pressure [Lying] 137/71 H Blood Pressure [Sitting (for 1 minute prior to obtaining)] 148/83 H Blood Pressure [Standing (for 1 minute prior to obtaining)] 140/84 H Blood Pressure Mean Blood Pressure Mean [Lying] 93 Blood Pressure Mean [Sitting (for 1 minute prior to obtaining)] 104 Blood Pressure Mean [Standing (for 1 minute prior to obtaining)] 102 Pulse Ox Oxygen Delivery Method Positive well nourished, well developed and no apparent distress General Appearance ED: well developed HEENT Reports normocephalic HEENT Narrative: 3 cm linear laceration to the left forehead No posterior pharynx swelling, no tongue swelling, no angioedema, no stridor Mouth ED: Yes moist mucous membranes normal Eyes PERRL and EOMs intact bilaterally Neck full ROM and supple Chest Wall inspection of chest normal Resp normal respiratory effort and clear to auscultation bilaterally Cardio regular rate and regular rhythm GI soft to palpation, non-tender, non-distended and no masses Back/Spine normal ROM and normal to inspection Extremity normal to inspection and full ROM Neuro oriented x3, CN's II-XII intact bilaterally, moves all extremities, no focal motor deficits and no sensory deficits noted Sensorium / Orientation: awake and alert Psych mental status grossly normal and thought process normal Skin no rashes or lesions noted and no wounds <Dr. Patricia Cueva, DO - Last Filed: 10/23/22 01:31> Physical Exam Const Vital Signs: 10/22/22 18:11 10/22/22 19:00 10/22/22 19:03 Temperature 96.9 F L Temperature Source Temporal Pulse Rate 68 66 Pulse Rate [Lying] Pulse Rate [Sitting (for 1 minute prior to obtaining)] Pulse Rate [Standing (for 1 minute prior to obtaining)] Respiratory Rate 18 16 Respiratory Effort Normal Non-Labored Blood Pressure 171/109 H 155/79 H Blood Pressure [Lying] Blood Pressure [Sitting (for 1 minute prior to obtaining)] Blood Pressure [Standing (for 1 minute prior to obtaining)] Blood Pressure Mean 129 104 Blood Pressure Mean [Lying] Blood Pressure Mean [Sitting (for 1 minute prior to obtaining)] Blood Pressure Mean [Standing (for 1 minute prior to obtaining)] Pulse Ox 100 100 Oxygen Delivery Method Room Air Room Air 10/22/22 21:15 10/22/22 22:06 Temperature Temperature Source Pulse Rate 63 Pulse Rate [Lying] 65 Pulse Rate [Sitting (for 1 minute prior to obtaining)] 69 Pulse Rate [Standing (for 1 minute prior to obtaining)] 71 Respiratory Rate Respiratory Effort Blood Pressure Blood Pressure [Lying] 137/71 H Blood Pressure [Sitting (for 1 minute prior to obtaining)] 148/83 H Blood Pressure [Standing (for 1 minute prior to obtaining)] 140/84 H Blood Pressure Mean Blood Pressure Mean [Lying] 93 Blood Pressure Mean [Sitting (for 1 minute prior to obtaining)] 104 Blood Pressure Mean [Standing (for 1 minute prior to obtaining)] 102 Pulse Ox Oxygen Delivery Method PROC <ANIRUDH Workman - Last Filed: 10/22/22 20:57> Procedures Lacerations laceration: Length: 0.98 in Depth: Sub Q Shape: Linear Prep: Chlorhexadine Laceration repair: Irrigated, Lidocaine with epi, Skin sutures and Wound explored Number of Sutures/Shellie: 3 Suture Information: Ethilon, Simple and 5-0 MDM <ANIRUDH Workman - Last Filed: 10/22/22 20:57> MDM MDM Narrative Medical decision making narrative: Patient presenting due to a syncopal episode that occurred earlier this evening not too long after being stung by a bee. He is nontoxic-appearing, vitals noted, blood pressure elevated initially but did go down some. Head CT will be obtained to rule out intracranial bleed, neck CT obtained to rule out fracture. Labs obtained to rule out leukocytosis, anemia, electrolyte abnormality, ANSELMO, UTI, and ACS. Chest x-ray obtained to rule out infiltrate and other cardiopulmonary abnormality and negative for any acute findings. He has been given IV fluids. Head and neck CT unremarkable and labs show WBC of 11.8, BUN of 28, creatinine 1.53. GFR 47. At this time, UA is pending and delta troponin pending. Forehead laceration was repaired, patient tolerated procedure well, it was cleaned with chlorhexidine and irrigated with copious amounts of saline. Lab Data Attestation: I reviewed the patient's lab results. Labs: Laboratory Results - last 24 hr 10/22/22 10/22/22 10/22/22 18:50 18:50 19:20 WBC Cancelled 11.3 H Corrected WBC Cancelled RBC Cancelled 4.93 Hgb Cancelled 14.7 Hct Cancelled 43.5 MCV Cancelled 88.2 MCH Cancelled 29.8 MCHC Cancelled 33.8 RDW Std Deviation Cancelled 45.4 H RDW Coeff of Mao Cancelled 14.2 Plt Count Cancelled 173 MPV Cancelled 9.8 Immature Gran % (Auto) Cancelled 0.500 Neut % (Auto) Cancelled 76.0 H Lymph % (Auto) Cancelled 14.9 L Weber % (Auto) Cancelled 8.1 Eos % (Auto) Cancelled 0.4 Baso % (Auto) Cancelled 0.1 Absolute Neuts (auto) Cancelled 8.6 H Absolute Lymphs (auto) Cancelled 1.68 Total Counted Cancelled Neutrophils % (Manual) Cancelled Band Neutrophils % Cancelled Lymphocytes % (Manual) Cancelled Monocytes % (Manual) Cancelled Eosinophils % (Manual) Cancelled Basophils % (Manual) Cancelled Metamyelocytes % Cancelled Myelocytes % Cancelled Promyelocytes % Cancelled Blast Cells % Cancelled Plasma Cell % (Manual) Cancelled Other Cells % Cancelled Nucleated RBC % Cancelled 0 Nucleated RBCs/100 WBC Cancelled Differential Comment Cancelled Diff Path Review Cancelled Hypersegmented Neuts Cancelled Atypical Lymphocytes Cancelled Reactive Lymphocytes Cancelled Smudge Cells Cancelled Toxic Granulation Cancelled Toxic Vacuolation Cancelled Dohle Bodies Cancelled Darion Rods Cancelled Platelet Estimate Cancelled Plt Morphology Comment Cancelled RBC Morphology Cancelled Cancelled Polychromasia Cancelled Hypochromasia Cancelled Poikilocytosis Cancelled Basophilic Stippling Cancelled Anisocytosis Cancelled Microcytosis Cancelled Macrocytosis Cancelled Spherocytes Cancelled Sickle Cells Cancelled Target Cells Cancelled Tear Drop Cells Cancelled Ovalocytes Cancelled Stomatocytes Cancelled [place] Bodies Cancelled [place] Cells Cancelled Bite Cells Cancelled Crenated Cell Cancelled Acanthocytes (Spur) Cancelled Rouleaux Cancelled Schistocytes Cancelled Sodium 136 Potassium 4.1 Chloride 108 H Carbon Dioxide 24.0 Anion Gap 4 L BUN 23 H Creatinine 1.53 H Estim Creat Clear Calc 43.07 Est GFR (MDRD) Af Amer 57 L Est GFR (MDRD) Non-Af 47 L BUN/Creatinine Ratio 15.0 Glucose 111 H Calcium 9.8 Troponin I High Sens 6 Urine Color Urine Clarity Urine pH Ur Specific [place] Urine Protein Urine Glucose (UA) Urine Ketones Urine Occult Blood Urine Nitrite Urine Bilirubin Urine Urobilinogen Ur Leukocyte Esterase Urine RBC Urine WBC Ur Squamous Epith Cells Urine Bacteria Urine Mucus 10/22/22 10/22/22 20:20 21:12 WBC Corrected WBC RBC Hgb Hct MCV MCH MCHC RDW Std Deviation RDW Coeff of Mao Plt Count MPV Immature Gran % (Auto) Neut % (Auto) Lymph % (Auto) Weber % (Auto) Eos % (Auto) Baso % (Auto) Absolute Neuts (auto) Absolute Lymphs (auto) Total Counted Neutrophils % (Manual) Band Neutrophils % Lymphocytes % (Manual) Monocytes % (Manual) Eosinophils % (Manual) Basophils % (Manual) Metamyelocytes % Myelocytes % Promyelocytes % Blast Cells % Plasma Cell % (Manual) Other Cells % Nucleated RBC % Nucleated RBCs/100 WBC Differential Comment Diff Path Review Hypersegmented Neuts Atypical Lymphocytes Reactive Lymphocytes Smudge Cells Toxic Granulation Toxic Vacuolation Dohle Bodies Darion Rods Platelet Estimate Plt Morphology Comment RBC Morphology Polychromasia Hypochromasia Poikilocytosis Basophilic Stippling Anisocytosis Microcytosis Macrocytosis Spherocytes Sickle Cells Target Cells Tear Drop Cells Ovalocytes Stomatocytes [place] Bodies [place] Cells Bite Cells Crenated Cell Acanthocytes (Spur) Rouleaux Schistocytes Sodium Potassium Chloride Carbon Dioxide Anion Gap BUN Creatinine Estim Creat Clear Calc Est GFR (MDRD) Af Amer Est GFR (MDRD) Non-Af BUN/Creatinine Ratio Glucose Calcium Troponin I High Sens 6 Urine Color Yellow Urine Clarity Clear Urine pH 6.0 Ur Specific [place] 1.020 Urine Protein 15 H Urine Glucose (UA) Normal Urine Ketones Negative Urine Occult Blood Negative Urine Nitrite Negative Urine Bilirubin Negative Urine Urobilinogen Normal Ur Leukocyte Esterase 25 H Urine RBC 0 SEEN Urine WBC 0-5 SEEN Ur Squamous Epith Cells 0-5 SEEN Urine Bacteria 0 SEEN Urine Mucus 0 SEEN Radiography X-Ray: Read by ED Physician and Read by Radiologist Diagnostic Testing: Clinical Impression(s) from Imaging Studies Brain CT 10/22/22 19:35 IMPRESSION: No acute intracranial hemorrhage or fracture. Involutional changes. Electronically Signed: Onur Todd MD at 19:54 EDT Reading Location ID and State: [facility] / [place] Tel , Service support , Cervical Spine CT 10/22/22 19:35 IMPRESSION: No acute fracture. Multilevel cervical spine degenerative change. Electronically Signed: Onur Todd MD at 19:51 EDT , Chest X-Ray 10/22/22 19:42 IMPRESSION: No radiographic evidence of acute cardiopulmonary disease. Improvement in previously seen opacity at left CP angle. Electronically Signed: Onur Todd MD at 19:55 EDT , EKG Initial EKG: Comments: 64 bpm, normal sinus rhythm, no ST elevation, reviewed and interpreted by attending ED physician <Dr. Patricia Cueva, DO - Last Filed: 10/23/22 01:31> [facility] Lab Data Labs: Laboratory Results - last 24 hr 10/22/22 10/22/22 10/22/22 18:50 18:50 19:20 WBC Cancelled 11.3 H Corrected WBC Cancelled RBC Cancelled 4.93 Hgb Cancelled 14.7 Hct Cancelled 43.5 MCV Cancelled 88.2 MCH Cancelled 29.8 MCHC Cancelled 33.8 RDW Std Deviation Cancelled 45.4 H RDW Coeff of Mao Cancelled 14.2 Plt Count Cancelled 173 MPV Cancelled 9.8 Immature Gran % (Auto) Cancelled 0.500 Neut % (Auto) Cancelled 76.0 H Lymph % (Auto) Cancelled 14.9 L Weber % (Auto) Cancelled 8.1 Eos % (Auto) Cancelled 0.4 Baso % (Auto) Cancelled 0.1 Absolute Neuts (auto) Cancelled 8.6 H Absolute Lymphs (auto) Cancelled 1.68 Total Counted Cancelled Neutrophils % (Manual) Cancelled Band Neutrophils % Cancelled Lymphocytes % (Manual) Cancelled Monocytes % (Manual) Cancelled Eosinophils % (Manual) Cancelled Basophils % (Manual) Cancelled Metamyelocytes % Cancelled Myelocytes % Cancelled Promyelocytes % Cancelled Blast Cells % Cancelled Plasma Cell % (Manual) Cancelled Other Cells % Cancelled Nucleated RBC % Cancelled 0 Nucleated RBCs/100 WBC Cancelled Differential Comment Cancelled Diff Path Review Cancelled Hypersegmented Neuts Cancelled Atypical Lymphocytes Cancelled Reactive Lymphocytes Cancelled Smudge Cells Cancelled Toxic Granulation Cancelled Toxic Vacuolation Cancelled Dohle Bodies Cancelled Darion Rods Cancelled Platelet Estimate Cancelled Plt Morphology Comment Cancelled RBC Morphology Cancelled Cancelled Polychromasia Cancelled Hypochromasia Cancelled Poikilocytosis Cancelled Basophilic Stippling Cancelled Anisocytosis Cancelled Microcytosis Cancelled Macrocytosis Cancelled Spherocytes Cancelled Sickle Cells Cancelled Target Cells Cancelled Tear Drop Cells Cancelled Ovalocytes Cancelled Stomatocytes Cancelled [place] Bodies Cancelled Frank Cells Cancelled Bite Cells Cancelled Crenated Cell Cancelled Acanthocytes (Spur) Cancelled Rouleaux Cancelled Schistocytes Cancelled Sodium 136 Potassium 4.1 Chloride 108 H Carbon Dioxide 24.0 Anion Gap 4 L BUN 23 H Creatinine 1.53 H Estim Creat Clear Calc 43.07 Est GFR (MDRD) Af Amer 57 L Est GFR (MDRD) Non-Af 47 L BUN/Creatinine Ratio 15.0 Glucose 111 H Calcium 9.8 Troponin I High Sens 6 Urine Color Urine Clarity Urine pH Ur Specific [place] Urine Protein Urine Glucose (UA) Urine Ketones Urine Occult Blood Urine Nitrite Urine Bilirubin Urine Urobilinogen Ur Leukocyte Esterase Urine RBC Urine WBC Ur Squamous Epith Cells Urine Bacteria Urine Mucus 10/22/22 10/22/22 20:20 21:12 WBC Corrected WBC RBC Hgb Hct MCV MCH MCHC RDW Std Deviation RDW Coeff of Mao Plt Count MPV Immature Gran % (Auto) Neut % (Auto) Lymph % (Auto) Weber % (Auto) Eos % (Auto) Baso % (Auto) Absolute Neuts (auto) Absolute Lymphs (auto) Total Counted Neutrophils % (Manual) Band Neutrophils % Lymphocytes % (Manual) Monocytes % (Manual) Eosinophils % (Manual) Basophils % (Manual) Metamyelocytes % Myelocytes % Promyelocytes % Blast Cells % Plasma Cell % (Manual) Other Cells % Nucleated RBC % Nucleated RBCs/100 WBC Differential Comment Diff Path Review Hypersegmented Neuts Atypical Lymphocytes Reactive Lymphocytes Smudge Cells Toxic Granulation Toxic Vacuolation Dohle Bodies Darion Rods Platelet Estimate Plt Morphology Comment RBC Morphology Polychromasia Hypochromasia Poikilocytosis Basophilic Stippling Anisocytosis Microcytosis Macrocytosis Spherocytes Sickle Cells Target Cells Tear Drop Cells Ovalocytes Stomatocytes [place] Bodies [place] Cells Bite Cells Crenated Cell Acanthocytes (Spur) Rouleaux Schistocytes Sodium Potassium Chloride Carbon Dioxide Anion Gap BUN Creatinine Estim Creat Clear Calc Est GFR (MDRD) Af Amer Est GFR (MDRD) Non-Af BUN/Creatinine Ratio Glucose Calcium Troponin I High Sens 6 Urine Color Yellow Urine Clarity Clear Urine pH 6.0 Ur Specific [place] 1.020 Urine Protein 15 H Urine Glucose (UA) Normal Urine Ketones Negative Urine Occult Blood Negative Urine Nitrite Negative Urine Bilirubin Negative Urine Urobilinogen Normal Ur Leukocyte Esterase 25 H Urine RBC 0 SEEN Urine WBC 0-5 SEEN Ur Squamous Epith Cells 0-5 SEEN Urine Bacteria 0 SEEN Urine Mucus 0 SEEN Radiography Diagnostic Testing: Clinical Impression(s) from Imaging Studies Brain CT 10/22/22 19:35 IMPRESSION: No acute intracranial hemorrhage or fracture. Involutional changes. Electronically Signed: Onur Todd MD at 19:54 EDT , Cervical Spine CT 10/22/22 19:35 IMPRESSION: No acute fracture. Multilevel cervical spine degenerative change. Electronically Signed: Onur Todd MD at 19:51 EDT , Chest X-Ray 10/22/22 19:42 IMPRESSION: No radiographic evidence of acute cardiopulmonary disease. Improvement in previously seen opacity at left CP angle. Electronically Signed: Onur Todd MD at 19:55 EDT , Treatment and Re-Evaluation Narrative: I have personally performed a face to face assessment of the patient and have reviewed the JUDY Note. I performed a substantive portion of the visit including all aspects of the following. My draper findings include: History is patient is 76-year-old male with history of neuropathy and CKD presenting for evaluation after syncope and closed head injury. Patient was stung by a bee and when he went inside to make a baking powder paste for this he started to become lightheaded. He was trying to walk to the chair when he had a syncopal event. He hit his head. His tried to get him up and he had another syncopal event. EMS then brought him to the emergency room. On exam patient has multiple scalp contusions, forehead laceration and abrasions to his arms. He is actually hypertensive at this time. Low suspicion for anaphylactic shock given his elevated blood pressure. Cardiac and infectious work-up is obtained which is largely normal. His orthostatics are normal. EKG does not show any acute ischemic changes. Patient is back to his normal state of health and feels fine. What the exact cause of the syncopal episode is not clear at this time I do not think patient requires extended cardiac monitoring. Possibly has some type of vasovagal event associated with a bee sting. Is encouraged to follow-up outpatient with his PCP. Laceration repair performed by ANIRUDH. Patient given return precautions. Patient is here to go home. His orthostatic vital signs are normal. Patient and agreeable with this plan of care. Other additions or changes: [None] Discharge Plan Triage Chief Complaint: Head Injury ED Midlevel Provider: Pallavi Ellis ED Provider: Patricia Cueva Dx/Rx/DC Orders Clinical Impression: Syncope, Head injury, Bee sting, Forehead laceration Instructions: ED Head Injury (Adult), ED Laceration: All Closures, ED Fainting, Uncertain Cause Prescriptions: No Action metoprolol tartrate [Lopressor] 50 mg tablet 50 mg PO BID tamsulosin 0.4 mg capsule,extended release 24hr 0.4 mg PO QDAY mecobalamin (vitamin B12) 1,000 mcg tablet,disintegrating 1,000 mcg SUBLINGUAL QDAY aspirin 81 MG tablet,chewable 81 mg PO DAILY@0800 Patient Comments: heart health hydrochlorothiazide 25 MG tablet 12.5 mg PO DAILY Patient Comments: blood pressure vitamin E (dl, acetate) 400 UNITS capsule 400 units PO DAILY Patient Comments: supplement glucosamine [id number] 1 EACH tablet 1 ea PO BID Patient Comments: supplement Fexofenedine 180 mg PO DAILY Primary Care Provider: Hermila Barton Referrals: Hermila Barton DO [Primary Care Provider] - 3-5 Days Activity Restrictions/Additional Instructions: Have stitches removed in about 5 days. Return for any worsening of your symptoms and follow-up with your PCP. Disposition Disposition: Home, Self Care Discharge Date/Time: 10/22/22 22:22
--- NOTE | 2022-10-22 18:47 | EKG12_ITS ---
Test Reason : SYNCOPE Blood Pressure : / mmHG Vent. Rate : 064 BPM Atrial Rate : 064 BPM P-R Int : 142 ms QRS Dur : 094 ms QT Int : 424 ms P-R-T Axes : 096 -04 044 degrees QTc Int : 437 ms Normal sinus rhythm Normal ECG Confirmed by JAY JAY CASTAÑEDA, ARABELLA ([id number]), carbon sequestration plant engineer JOSE MANUEL OTOOLE ([id number]) on 10/25/2022 11:43:57 AM Referred By: Confirmed By:SHARLENE GOYAL MD
[2022-10-22 18:59] VITALS: BMI 30.1
[2022-10-22 19:00] VITALS: BP 155/79; PULSE 66; RESP 16; O2SAT 100
[2022-10-22] MEDS: Diphth,Pertuss(Acell),Tet Vac 0.5 ML Vial IM (19:21)
--- NOTE | 2022-10-22 19:35 | CT_ITS ---
INDICATION: head injury, neck pain EXAMINATION: CT CERVICAL SPINE - CT Spine Cervical W/O Contrast Injection TECHNIQUE: Helically acquired images were obtained of the cervical spine. 2D reformatted images were reviewed. A radiation dose optimization technique was used for this scan. IV Contrast dosage and agent: None. COMPARISON: None. FINDINGS: Minimal anterolisthesis of C2 on C3 and C3 on C4 which is probably degenerative. Minimal retrolisthesis of C4 on C5 also degenerative. Mild disc narrowing C4/C5 and moderate narrowing at C5-C7. Multilevel anterior osteophyte formation as well as posterior disc osteophyte complexes. No jumped facet. No spinous process fracture. C1/C2 relationship is normal. There is multilevel facet arthropathy and uncovertebral joint spurring. Neuroforaminal narrowing is probably most significant at left C4/C5, C5/C6 and C6/C7. Right-sided foraminal narrowing is most significant at C3/C4, C4/C5, C5/C6 and C6/C7. Spinal canal appears to be mildly narrowed at multiple levels. Prevertebral soft tissues are normal. Upper lung probable air trapping. CT/Spine Cervical without Contras IMPRESSION: No acute fracture. Multilevel cervical spine degenerative change. Electronically Signed: Onur Todd MD at 19:51 EDT ,
--- NOTE | 2022-10-22 19:35 | CT_ITS ---
INDICATION: head injury EXAMINATION: CT BRAIN - CT Head or Brain W/O Contrast Injection TECHNIQUE: Multiple axial images were obtained of the head without intravenous contrast. A radiation dose optimization technique was used for this scan. IV Contrast dosage and agent: None. COMPARISON: April 19, 2013 FINDINGS: BRAIN PARENCHYMA: No intra- or extra-axial hemorrhage. No evidence of acute infarct. No intracranial mass or mass effect. There is preservation of the johnson/white matter interface. Posterior fossa structures are unremarkable. CSF SPACES: Mild to moderate cortical and central involutional change. No hydrocephalus. Basal cisterns are patent. CALVARIUM, SKULL BASE, PARANASAL SINUSES AND MASTOID AIR CELLS: Mild paranasal sinus mucosal thickening. No discrete lytic or blastic abnormalities. Postsurgical change. ORBITS: Both globes, extraocular muscles, optic nerves and retrobulbar fat appear unremarkable. CT/Brain/Head without Contrast IMPRESSION: No acute intracranial hemorrhage or fracture. Involutional changes. Electronically Signed: Onur Todd MD at 19:54 EDT ,
--- NOTE | 2022-10-22 19:42 | RAD_ITS ---
INDICATION: chest pain EXAMINATION/TECHNIQUE: X-RAY - XR Chest 1 View COMPARISON: March 12, 2020. FINDINGS: LINES/DEVICES: None. LUNGS: No consolidation, edema or effusion. No pneumothorax. MEDIASTINUM AND CARDIOVASCULAR STRUCTURES: Cardiac silhouette not enlarged. Central airways and mediastinal contour are stable. BONES AND SOFT TISSUES: No acute osseous pathology. RAD/Chest 1 View (Portable) IMPRESSION: No radiographic evidence of acute cardiopulmonary disease. Improvement in previously seen opacity at left CP angle. Electronically Signed: Onur Todd MD at 19:55 EDT ,
[2022-10-22 20:00] LABS: Absolute Lymphocyte Count 1.68 X10^3/uL (0.83-4.51); Absolute Neutrophil Count 8.6 X10^3/uL (2.0-7.7); Basophil# 0.01 X10^3/uL; Basophil% 0.1 % (0-1); Eosinophil# 0.04 X10^3/uL; Eosinophils% 0.4 % (0-5); Hematocrit 43.5 % (40-54); Hemoglobin 14.7 g/dL (13.0-16.5); Lymphocyte # 1.68 X10^3/ul (0.83-4.51); Lymphocyte % 14.9 % (19-41); Mean Corp Hgb Conc 33.8 g/dL (32-36); Mean Corpuscular Hgb 29.8 pg (27.0-32.0); Mean Corpuscular Volume 88.2 fL (80-94); Mean Platelet Vol. 9.8 fl (6.2-12.0); Monocyte# 0.91 X10^3/uL; Monocyte% 8.1 % (0-10); NRBC Flagged by Analyzer 0 % (0-5); Neutrophil # 8.59 X10^3/uL (2.7-7.7); Platelet Count 173 K/mm3 (150-450); RBC Distribution Width CV 14.2 % (11.6-14.6); RBC Distribution Width SD 45.4 fl (35.1-43.9); Red Blood Count 4.93 M/mm3 (4.6-6.2); White Blood Count 11.3 K/mm3 (4.4-11.0)
[2022-10-22 20:03] LABS: Anion Gap 4 (5-15); BUN 23 mg/dL (7-18); Calcium,Total 9.8 mg/dL (8.5-10.1); Chloride 108 mmol/L (98-107); Creatinine, Serum 1.53 mg/dL (0.70-1.30); EST Glomerular Filtration Rate 47 mL/min (>60); Est Glom Filt Rate - Afr Amer 57 mL/min (>60); Estimated Creatinine Clearance 43.07 ml/min; Glucose 111 mg/dL (74-106); Potassium 4.1 mmol/L (3.5-5.1); Sodium Level 136 mmol/L (136-145); Troponin-I HS (w/2H Reflex) 6 pg/mL (3.0-78.0)
[2022-10-22] MEDS: 0.9% Normal Saline (500mL Bag) 500 ML 999 ML IV (20:31)
[2022-10-22 20:34] LABS: Bacteria 0 SEEN /hpf (None Seen); Mucous, Urine 0 SEEN /hpf (<or=2+); Red Blood Cells-Urine 0 SEEN /hpf (0-5)
[2022-10-22 20:35] LABS: Color, Urine Yellow (Yellow); Glucose, Dipstick Normal (Normal); Ketone-Dipstick Negative (Negative); Leukocyte Esterase-Dipstick 25 /ul (Negative); Nitrite-Dipstick Negative (Negative); Occult Blood-Urine Negative /ul (Negative); Protein-Dipstick 15 mg/dl (Negative); Urine Bilirubin Dipstick Negative (Negative); Urine Clarity Clear (Clear); Urine Urobilinogen Normal (Normal)
[2022-10-22 20:57] LABS: Reflex Troponin-HS? (from REC) Y
[2022-10-22 21:03] LABS: Squamous Epithelial Cells - UA 0-5 SEEN /hpf (0-5); White Blood Cells 0-5 SEEN /hpf (0-5)
[2022-10-22 21:15] VITALS: PULSE 63
[2022-10-22 21:40] LABS: Troponin-I HS 6 pg/mL (3.0-78.0)
[2022-10-22 22:06] VITALS: BP 137/71; BP 140/84; BP 148/83; PULSE 65; PULSE 69; PULSE 71
== END 2022-10-22 22:22 | disposition home or self-care (01) ==
PROVIDERS: Physician Assistant; Emergency Provider Emergency Medicine; PCP Internal Medicine; Visit Provider Emergency Medicine
DX: R55 Syncope and collapse (principal); N18.30 Chronic kidney disease, stage 3 unspecified; T63.444A Toxic effect of venom of bees, undetermined, initial encounter; S01.81XA Laceration without foreign body of other part of head, initial encounter; Z23 Encounter for immunization; X58.XXXA Exposure to other specified factors, initial encounter; Z86.718 Personal history of other venous thrombosis and embolism
CPT/HCPCS: 12001; 70450; 71045; 72125; 80048; 81001; 84484; 85025; 87428; 90715; 93005; 96372; 99284; J7040; A4216

== ENCOUNTER → 2024-11-29 | Outpatient (CLI) | payer MEDICARE, OTHER, SELFPAY ==
[2024-11-29 12:39] LABS: Hepatitis C Antibody Nonreactive (Nonreactive)
== END | disposition home or self-care (01) ==
LOC: MTLAB 10:15
PROVIDERS: PCP Internal Medicine; Referring Provider Nurse Practitioner Family; Visit Provider Nurse Practitioner Family
DX: Z11.59 Encounter for screening for other viral diseases (principal)
CPT/HCPCS: 36415; 86803

== ENCOUNTER → 2024-12-25 | Outpatient (CLI) | payer MEDICARE, OTHER, SELFPAY ==
[2024-12-25 17:58] LABS: Color, Urine Yellow (Yellow); Glucose, Dipstick Normal (Normal); Ketone-Dipstick Negative (Negative); Leukocyte Esterase-Dipstick 100 /ul (Negative); Nitrite-Dipstick Negative (Negative); Occult Blood-Urine 10 /ul (Negative); Protein-Dipstick 15 mg/dl (Negative); Specific Gravity, Urine 1.020 (1.002-1.030); Urine Bilirubin Dipstick Negative (Negative)
== END | disposition home or self-care (01) ==
LOC: LABSPEC 11:58
PROVIDERS: PCP Internal Medicine; Referring Provider Nurse Practitioner Family; Visit Provider Nurse Practitioner Family
DX: N39.0 Urinary tract infection, site not specified (principal)
CPT/HCPCS: 81002; 87086; 87088